=== PATIENT | male | born 1965 | race Caucasian/White ===

== ENCOUNTER 2024-09-22 10:52 | Emergency (ER) | payer OTHER | END 2024-09-22 13:12 | disposition home or self-care (01) | LOC: MW.ED 10:52 | DX: S43.102A Unspecified dislocation of left acromioclavicular joint, initial encounter (principal); Z75.3 Unavailability and inaccessibility of health-care facilities; V89.2XXA Person injured in unspecified motor-vehicle accident, traffic, initial encounter | CPT/HCPCS: 73030; 73060; 73590; 73610; 99283; A9270 ==